=== PATIENT | female | born 1985 | race Caucasian/White ===

== ENCOUNTER 2017-06-20 09:24 | Outpatient (CLI) | payer OTHER ==
[2017-06-20 11:57] LABS: GTT FASTING URINE NEGATIVE (NEGATIVE)
[2017-06-20 12:10] LABS: GTT FASTING GLUCOSE 87 mg/dl (70-110)
[2017-06-20 13:26] LABS: GLUCOSE 1 HOUR 179 mg/dl
== END 2017-06-20 15:45 | disposition home or self-care (01) ==
LOC: OBT 09:24 → L-D 09:24 → OBT 15:45
DX: O24.419 Gestational diabetes mellitus in pregnancy, unspecified control (principal); Z3A.38 38 weeks gestation of pregnancy
CPT/HCPCS: 76815; 76818; 82951

== ENCOUNTER 2017-06-23 12:25 | Inpatient (IN) | payer OTHER ==
[2017-06-23] MEDS: LACTATED RINGER'S 1,000 ML IV ×2 (14:54→21:05)
[2017-06-23] MEDS ORDERED: LIDOCAINE 1% (MPF) 30 ML INJ INJ (21:00)
[2017-06-23] MEDS ORDERED: MISOPROSTOL 200 MCG TAB PR (21:00)
[2017-06-23] MEDS ORDERED: CARBOPROST 250 MCG INJ IM (21:00)
[2017-06-23] MEDS ORDERED: METHYLERGONOVINE 0.2 MG INJ IM (21:00)
[2017-06-23] MEDS ORDERED: OXYTOCIN 30 UNITS/LR 500 ML IV (21:00)
[2017-06-23] MEDS: AMPICILLIN 2 GM/NS (PMX) 100 ML IV (21:20)
[2017-06-23 21:28] LABS: ADD MAN DIFF? NO
[2017-06-23 21:31] LABS: WHITE BLOOD COUNT 8.7 10^3/ul (4.8-10.8)
[2017-06-23 21:31] LABS: BASOPHILS % 0.2 % (0.0-2.0); EOSINOPHILS % 0.5 % (0.0-7.0); HEMATOCRIT 34.9 % (37.0-47.0); HEMOGLOBIN 11.9 g/dl (12.0-16.0); LYMPHOCYTES % 23.2 % (15.0-51.0); MEAN CORPUSCULAR HEMOGLOBIN 28.6 pg (29.0-33.0); MEAN CORPUSCULAR HGB CONC 34.1 g/dl (32.0-37.0); MEAN CORPUSCULAR VOLUME 83.9 fl (82.0-101.0); MEAN PLATELET VOLUME 11.9 fl (7.4-10.4); MONOCYTE # 0.6 10^3/ul (0.3-0.9); NEUTROPHILS % 68.6 % (39.0-77.0); PLATELET COUNT 260 10^3/UL (140-415); RED BLOOD COUNT 4.16 10^6/ul (4.20-5.40); RED CELL DISTRIBUTION WIDTH 13.8 % (11.5-14.5)
[2017-06-23] MEDS: ACCU-CHEK XX (21:45)
[2017-06-23] MEDS: MISOPROSTOL 25 MCG CAPSULE PO (21:46)
[2017-06-23 21:53] LABS: INR 0.83; PROTIME 11.5 Sec (11.9-14.9); PT RATIO 0.9
[2017-06-23 21:54] LABS: PARTIAL THROMBOPLASTIN TIME 28.1 Sec (25.0-35.0)
[2017-06-23] MEDS ORDERED: MISOPROSTOL 100 MCG TAB PO (22:00)
[2017-06-23 22:12] LABS: AMPHETAMINE/METHAMPHETAMINE Negative (NEGATIVE); BARBITURATES Negative (NEGATIVE); BENZODIAZEPINES Negative (NEGATIVE); CANNABINOIDS Negative (NEGATIVE); COCAINE Negative (NEGATIVE); OPIATES Negative (NEGATIVE)
[2017-06-23 22:26] LABS: HEPATITIS B SURFACE ANTIGEN NEGATIVE (NEGATIVE)
[2017-06-24] MEDS ORDERED: AMPICILLIN 1 GM/NS (PMX) 50 ML IV (01:00)
[2017-06-24] MEDS: ACCU-CHEK XX (01:49)
[2017-06-24] MEDS: MISOPROSTOL 25 MCG CAPSULE PO (01:52)
[2017-06-24] MEDS: LACTATED RINGER'S 1,000 ML IV (03:33)
[2017-06-24] MEDS: BUTORPHANOL 2 MG INJ IV (04:36)
[2017-06-24] MEDS: OXYTOCIN 30 UNITS/LR 500 ML IV ×2 (05:24→05:48)
[2017-06-24] MEDS ORDERED: DEXTROSE 5%-LR 1,000 ML IV (06:10)
[2017-06-24] MEDS ORDERED: CARBOPROST 250 MCG INJ IM (06:30)
[2017-06-24] MEDS ORDERED: DIBUCAINE 1% 30 GM OINT PR (06:30)
[2017-06-24] MEDS ORDERED: METHYLERGONOVINE 0.2 MG INJ IM (06:30)
[2017-06-24] MEDS ORDERED: ZOLPIDEM 5 MG TAB PO (06:30)
[2017-06-24] MEDS ORDERED: ONDANSETRON 4 MG INJ IV (06:30)
[2017-06-24] MEDS ORDERED: DIPHENHYDRAMINE 50 MG INJ IV (06:30)
[2017-06-24] MEDS ORDERED: MISOPROSTOL 200 MCG TAB PR (06:30)
[2017-06-24] MEDS ORDERED: ACETAMINOPHEN 325 MG TAB PO (06:30)
[2017-06-24] MEDS ORDERED: OXYTOCIN 30 UNITS/LR 500 ML IV (06:30)
[2017-06-24] MEDS: LANOLIN 7 GM TUBE TOP (09:03)
[2017-06-24] MEDS: WITCH HAZEL/GLYCERIN PAD PR (09:03)
[2017-06-24] MEDS: OXYCODONE/ASPIRIN (4.88/325) TAB PO ×2 (10:59→16:55)
[2017-06-24] MEDS: LACTATED RINGER'S 1,000 ML IV* ×3 (11:04→19:21)
[2017-06-24] MEDS: BENZOCAINE 20% 56 ML SPRAY TOP (11:05)
[2017-06-24] MEDS: IBUPROFEN 600 MG TAB PO ×3 (13:40→23:33)
[2017-06-24 16:45] LABS: RAPID PLASMA REAGIN NONREACTIVE (NR)
[2017-06-25] MEDS: OXYCODONE/ASPIRIN (4.88/325) TAB PO (04:50)
[2017-06-25] MEDS: IBUPROFEN 600 MG TAB PO ×4 (05:44→23:42)
[2017-06-25] MEDS: LACTATED RINGER'S 1,000 ML IV* (06:10)
[2017-06-25 08:26] LABS: ADD MAN DIFF? NO
[2017-06-25 08:34] LABS: WHITE BLOOD COUNT 10.5 10^3/ul (4.8-10.8)
[2017-06-25 08:34] LABS: BASOPHILS % 0.3 % (0.0-2.0); EOSINOPHILS # 0.1 10^3/ul (0.0-0.5); EOSINOPHILS % 1.2 % (0.0-7.0); HEMATOCRIT 31.9 % (37.0-47.0); HEMOGLOBIN 10.4 g/dl (12.0-16.0); LYMPHOCYTES # 2.7 10^3/ul (0.8-2.9); MEAN CORPUSCULAR HEMOGLOBIN 28.5 pg (29.0-33.0); MEAN CORPUSCULAR HGB CONC 32.6 g/dl (32.0-37.0); MEAN CORPUSCULAR VOLUME 87.4 fl (82.0-101.0); MEAN PLATELET VOLUME 12.3 fl (7.4-10.4); MONOCYTE # 0.8 10^3/ul (0.3-0.9); MONOCYTES % 7.9 % (0.0-11.0); NEUTROPHIL # 6.7 10^3/ul (1.6-7.5); NEUTROPHILS % 64.1 % (39.0-77.0); PLATELET COUNT 210 10^3/UL (140-415); RED BLOOD COUNT 3.65 10^6/ul (4.20-5.40); RED CELL DISTRIBUTION WIDTH 14.2 % (11.5-14.5)
[2017-06-25] MEDS: SENNA/DOCUSATE NA (8.6MG/50MG) TAB PO (08:37)
[2017-06-26] MEDS: IBUPROFEN 600 MG TAB PO ×2 (05:44→11:43)
[2017-06-26] MEDS: MEASLES,MUMPS,RUBELLA VACCINE INJ SC* (09:00)
[2017-06-26] MEDS: DIPHTH/TET/ACEL PERTUSS (ADULT) 0.5 ML VIAL IM* (09:00)
== END 2017-06-26 14:05 | disposition home or self-care (01) | DRG 775 ==
LOC: OBT 12:25 → PP1 06-24 08:31 → L-D 12:31 → OBT 20:03 → L-D 20:05
PROVIDERS: Obstetrics & Gynecology
PROC: 10E0XZZ Delivery of Products of Conception, External Approach (ICD-10-PCS; principal; 2017-06-24)
PROC: 3E033VJ Introduction of Other Hormone into Peripheral Vein, Percutaneous Approach (ICD-10-PCS; 2017-06-24)
DX: O69.2XX0 Labor and delivery complicated by other cord entanglement, with compression, not applicable or unspecified (principal); Z37.0 Single live birth; Z3A.38 38 weeks gestation of pregnancy
CPT/HCPCS: 36415; 76815; 76818; 80307; 82962; 85025; 85610; 85730; 86592; 86850; 86900; 86901; 87340; 96360; 96361